=== PATIENT | male | born 1995 ===

== ENCOUNTER 2017-04-12 14:02 | Emergency (ER) | payer SELFPAY ==
[~2017-04-12] VITALS: Ht 185.4 cm; Wt 75.0 kg
[2017-04-12 14:38] VITALS: BP 124/69; PULSE 60; RESP 12; O2SAT 100
== END 2017-04-12 15:39 | disposition left against medical advice (07) ==
LOC: SED 15:34
DX: S49.92XA Unspecified injury of left shoulder and upper arm, initial encounter (principal); Z53.21 Procedure and treatment not carried out due to patient leaving prior to being seen by health care provider